=== PATIENT | male | born 1975 | race Caucasian/White ===

== ENCOUNTER 2020-11-25 19:33 | Emergency (ER) | payer OTHER, BC ==
[~2020-11-25] VITALS: Ht 167.7 cm; Wt 77.1 kg
[2020-11-25 19:45] VITALS: BP 153/99
[2020-11-25] MEDS ORDERED: LIDOCAINE 1% INJ 20 ML 20 ML VIAL ONE (19:51)
--- NOTE | 2020-11-25 19:57 | ED Upper Extremity ---
General Chief Complaint: Laceration Stated Complaint: CUT FINGER Source: patient Exam Limitations: no limitations, language barrier History of Present Illness Date Seen by Provider: Nov 25, 2020 Time Seen by Provider: 19:45 Initial Comments This is a well-appearing 45-year-old speaking male who presents to the ER with complaints of smashed right pinky and ring finger. 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 Incident occurred approximately one hour prior to arrival. Bleeding controlled with direct pressure. Last tetanus unknown. No other injuries reported. Interpretation performed by co-worker per patient request. Allergies and Home Medications Allergies Coded Allergies: No Known Drug Allergies (Unverified , 11/25/20) Home Medications Cephalexin 500 Mg Tablet, 500 MG PO TID Prescribed by: FABIOLA ANAYA on 11/25/20 2100 Patient Home Medication List Home Medication List Reviewed: Yes Review of Systems Constitutional: no symptoms reported EENTM: no symptoms reported Respiratory: no symptoms reported Cardiovascular: no symptoms reported Gastrointestinal: no symptoms reported Musculoskeletal: see HPI Skin: see HPI Physical Exam Vital Signs Vital Signs - First Documented 11/25/20 19:45 Temp 36.4 Pulse 78 Resp 17 B/P (MAP) 153/99 (117) Capillary Refill : Height, Weight, BMI Height: '" Weight: lbs. oz. kg; BMI Method: General Appearance: WD/WN, no apparent distress HEENT: PERRL/EOMI, normal ENT inspection Neck: full range of motion, normal inspection Cardiovascular: regular rate, rhythm, no murmur Respiratory: lungs clear, normal breath sounds Hand: Right (dorsal aspect distal to PIP small skin tear. 5th distal phalanx has avulsion of nail bed and nail plate) Neurologic/Tendon: normal sensation, normal motor functions, normal tendon functions Neurologic/Psychiatric: alert, normal mood/affect, oriented x 3 Skin: normal color, warm/dry, ecchymosis Progress/Results/Core Measures Results/Orders My Orders Orders - FABIOLA ANAYA [employer] Finger(S) (11/25/20 19:51) Dipht,Pertuss(Acell),Tet Adult (Boostrix (11/25/20 20:00) Lidocaine 1% Inj 20 Ml (Xylocaine 1% Inj (11/25/20 20:00) Lidocaine 1% Inj 20 Ml (Xylocaine 1% Inj (11/25/20 19:51) Medications Given in ED Current Medications Medications Dose Ordered Sig/Luis Route Start Time Stop Time Status Last Admin Dose Admin Diphtheria/ Tetanus/Acell Pertussis 0.5 ml ONCE ONCE IM 11/25/20 20:00 11/25/20 20:01 DC 11/25/20 20:36 0.5 ML Lidocaine HCl 20 ml ONCE ONCE INJ 11/25/20 20:00 11/25/20 20:01 DC 11/25/20 20:35 20 ML Vital Signs/I&O 11/25/20 19:45 Temp 36.4 Pulse 78 Resp 17 B/P (MAP) 153/99 (117) Progress Progress Note : Progress Note Right 4th and 5th fingers soaked in Saline and Iodine solution. Images of right 4th and 5th phalanx obtained. Questionable 5th distal tuft fracture. Nail plate completely from nail bed except a small area near free edge. Cleansed proximal 5th phalanx with alcohol and iodine. Locally anesthetized area with 50/50 mix Bupivicaine 0.5% 3ml and Lidocaine 1% 3ml and performed digital block. Tolerated well. Able to remove remaining nail plate and cleanse nail bed, tolerated well. No lacerations appreciated on exam. Bleeding controlled. Applied Xeroform, 4x4 gauze, and Kerlix. Instructed to keep above heart as much as possible over next 72 hours. Will have him return on Monday for wound check. He his agreeable with plan. Reviewed discharge POC and he is agreeable with plan. Tetanus updated today. Discharge POC interpreted by co-worker. Diagnostic Imaging Diagonstic Imaging: Xray Plain Films/CT/US/NM/MRI: hand Comments [facility] [place], [place] NAME: CONTRERAS-VERONICALIZETH E [facility] REC#: [id number] PT STATUS: REG ER : 1975 PHYSICIAN: FABIOLA ANAYA APRN ADMIT DATE: 11/25/20/ER Signed Date of Exam:11/25/20 FINGER(S) INDICATION: Pain. 3 views were obtained. FINDINGS: There is a questionable tiny displaced fracture off the distal phalanx of the right 5th finger. The alignment is otherwise normal. No other fracture or dislocation. There are no radiopaque foreign bodies. Soft tissues are unremarkable. IMPRESSION: Questionable minimally displaced fracture involving the distal tip of the distal phalanx of the right 5th finger. Dictated by: Dictated on workstation # [id number] Dict: 11/25/202036 Trans: 11/25/202041 CVB [id number] Interpreted by: YOUNG HAYNES MD Electronically signed by: YOUNG HAYNES MD 11/25/202041 Reviewed: Reviewed by Me Departure Impression Primary Impression: Traumatic avulsion of nail plate of finger Disposition: HOME, SELF-CARE Condition: Improved Departure-Patient Inst. Decision time for Depature: 20:59 Patient Instructions: Nail Avulsion (DC), Wound Care ED Add. Discharge Instructions: Plan: 1. Keep hand elevated above your heart as much as possible over the next 72 hours to reduce swelling. 2. Keep bandage clean and dry. Change if soiled as shown in ER. 3. Return to ER on MondayNovember 27 for wound check. 5. All discharge instructions reviewed with patient and/or family. Voiced understanding. Scripts Cephalexin (Cephalexin) 500 Mg Tablet 500 MG PO TID for 5 Days, #15 TAB 0 Refills Prov: FABIOLA ANAYA APRN 11/25/20 FABIOLA ANAYA APRN Nov 25, 2020 19:57
[2020-11-25] MEDS ORDERED: LIDOCAINE 1% INJ 20 ML 20 ML VIAL INJ ONE (20:00)
[2020-11-25] MEDS ORDERED: TETANUS,DIPTH,PERTUSS P/F (BOOSTRIX) 0.5 ML VIAL IM ONE (20:00)
--- NOTE | 2020-11-25 20:41 | Diagnostic Imaging Report ---
INDICATION: Pain. 3 views were obtained. FINDINGS: There is a questionable tiny displaced fracture off the distal phalanx of the right 5th finger. The alignment is otherwise normal. No other fracture or dislocation. There are no radiopaque foreign bodies. Soft tissues are unremarkable. IMPRESSION: Questionable minimally displaced fracture involving the distal tip of the distal phalanx of the right 5th finger. Dictated by: Dictated on workstation # [id number]
[2020-11-25] MEDS ORDERED: CEPH500T PO (21:00)
== END 2020-11-25 21:04 | disposition home or self-care (01) ==
LOC: ER 19:37
DX: S61.316A Laceration without foreign body of right little finger with damage to nail, initial encounter (principal); Z23 Encounter for immunization; W23.0XXA Caught, crushed, jammed, or pinched between moving objects, initial encounter
CPT/HCPCS: 11730; 64450; 73140; 90715

== ENCOUNTER 2020-11-27 08:53 | Emergency (ER) | payer OTHER, BC ==
[~2020-11-27] VITALS: Ht 167 cm; Wt 79.0 kg
[~2020-11-27 08:53] MED LIST: CEPH500T PO
[2020-11-27 09:05] VITALS: BP 120/85
--- NOTE | 2020-11-27 09:22 | ED Suture Removal/Wound Check ---
Suture/Wound Re-check Suture Removal/Wound Recheck : Progress Patient presents to the emergency department for a wound evaluation after injuring his right fifth digit at work a few days ago. Patient has not been really washing the wound. He has been changing the dressing twice a day. I have instructed him to wash the wound twice daily. Keep Vaseline gauze or equivalent on the nailbed to keep it moist. General Appearance: WD/WN, no apparent distress Neuro/Tendon: normal sensation, normal motor functions, normal tendon functions Skin Exam: normal color, warm/dry, other (Patient has healing distal right fifth digit wound. Nail has been removed. Nailbed looks good pink and well vascularized. There is no surrounding erythema or proximal lymphangitic streaking or drainage from the nailbed area.) Physical Exam Vital Signs Vital Signs - First Documented 11/27/20 09:05 Temp 36.0 Pulse 87 Resp 16 B/P (MAP) 120/85 Pulse Ox 98 O2 Delivery Room Air Capillary Refill : General Appearance: WD/WN, no apparent distress Respiratory: no respiratory distress, no accessory muscle use Extremities: normal range of motion Neurologic/Psychiatric: alert, normal mood/affect, oriented x 3 Skin: normal color, warm/dry, other (Patient has healing distal right fifth digit wound. Nail has been removed. Nailbed looks good pink and well vascularized. There is no surrounding erythema or proximal lymphangitic streaking or drainage from the nailbed area.) Departure Impression Primary Impression: Encounter for evaluation of wound Disposition: 01 HOME, SELF-CARE Condition: Stable Departure-Patient Inst. Decision time for Depature: 09:20 Referrals: NO,LOCAL PHYSICIAN (PCP/Family) Primary Care Physician Patient Instructions: Wound Care (DC) Add. Discharge Instructions: Keep the wound clean dry and covered until it starts to heal. Wash your hands twice daily. Cover the tip of your finger with a Vaseline gauze dressing and then dry gauze on top of that. Do this for 2-3 more days. Then the wound can be open to air. You can follow-up at [facility] occupational medicine clinic for further wound evaluation. MICHAEL BOYKIN MD Nov 27, 2020 09:22
== END 2020-11-27 09:29 | disposition home or self-care (01) ==
LOC: EDUNIT# 08:53 → ER 08:56
DX: Z48.01 Encounter for change or removal of surgical wound dressing (principal)